=== PATIENT | female | born 2000 | race Caucasian/White ===

== ENCOUNTER 2020-01-14 19:39 | Emergency (ER) | payer OTHER ==
[~2020-01-14] VITALS: Ht 160 cm; Wt 50.9 kg
[2020-01-14] MEDS ORDERED: DOXY100C37 PO (23:33)
[2020-01-14] MEDS ORDERED: FLAG500T PO (23:33)
[2020-01-14] MEDS ORDERED: LIDOCAINE 1% SDV 5 ML VIAL DILUENT ONE (23:45)
[2020-01-14] MEDS ORDERED: cefTRIAXone SOD 1 GM VIAL (J0696) IM ONE (23:45)
[2020-01-15] VITALS: BP 122/57
[2020-01-15 00:37] LABS: CHLAMYDIA DNA AMPLIFICATION NEGATIVE (NEGATIVE); GC DNA AMPLIFICATION NEGATIVE (NEGATIVE)
== END 2020-01-15 00:25 | disposition home or self-care (01) ==
LOC: M ED 19:39
DX: Z11.3 Encounter for screening for infections with a predominantly sexual mode of transmission (principal); Z91.018 Allergy to other foods
CPT/HCPCS: 84702; 87491; 87591; 96372; 99284; J0696

== ENCOUNTER → 2020-08-31 | Outpatient (REF) | payer OTHER ==
[~2020-08-31] MED LIST: DOXY100C37 PO; FLAG500T PO
[2020-08-31 17:20] LABS: HEMATOCRIT 36.8 % (36.0-47.0); HEMOGLOBIN 12.1 g/dl (12.0-15.5); MEAN CORPUSCULAR HGB CONC 32.9 g/dl (32.0-36.5); MEAN CORPUSCULAR VOLUME 91.1 fl (80.0-96.0); PLATELET COUNT, AUTOMATED 214 10^3/uL (150-450); RED BLOOD COUNT 4.04 10^6/uL (4.00-5.40); WHITE BLOOD COUNT 7.4 10^3/uL (4.0-10.0)
[2020-08-31 18:48] LABS: HIV 1&2 SCREEN CENTAUR NEGATIVE (NEGATIVE)
[2020-09-01 12:11] LABS: HEPATITIS C VIRUS ABY INDEX 0.1 INDEX (<0.8)
== END ==
LOC: M PLALAB 13:52
PROVIDERS: ATTEND Obstetrics & Gynecology
DX: Z34.01 Encounter for supervision of normal first pregnancy, first trimester (principal)

== ENCOUNTER → 2020-11-30 | Outpatient (CLI) | payer OTHER ==
--- NOTE | 2020-11-30 13:42 | REP ---
INDICATION: ANATOMY COMPARISON: None. TECHNIQUE: Transabdominal obstetrical ultrasound with color Doppler evaluation. FINDINGS: Examination demonstrates a single live intrauterine in cephalic presentation. motion is identified by technologist. Placenta is noted posterior and grade 1 without evidence for placenta previa or abruption. Amniotic fluid volume is normal. Cervix measures 3.8 cm in length and appears closed.. Gestational age by current measurements 20 weeks 0 days with REDDY 04/19/2021. FHR equals 146 beats per minute. BPD: 4.7 cm 20 weeks 1 day HC: 17.5 cm 20 weeks 0 days AC: 14.1 cm 19 weeks 3 days FL: 3.2 cm 20 weeks 0 days HL: 3.1 cm 20 weeks 3 days HC/AC: 1.24 Estimated weight 311 grams (20thpercentile). Anatomical assessment demonstrates normal structures including cranium, choroid plexus, cavum, cerebellum/posterior fossa, facial features, lungs, diaphragm, stomach, cord insertion/three-vessel cord, kidneys/bladder, spine, and extremities. IMPRESSION: 1. Single live intrauterine in cephalic presentation demonstrating appropriate estimated weight. 2. Limited evaluation of the heart/ventricular outflow tracts due to positioning. Remainder of the anatomical assessment is complete and normal. <Electronically signed by Justin Frias > 11/30/20 [id number]
== END ==
LOC: M WHC 12:09
PROVIDERS: ATTEND Obstetrics & Gynecology
DX: Z36.3 Encounter for antenatal screening for malformations (principal); Z3A.20 20 weeks gestation of pregnancy
CPT/HCPCS: 76811; G0463

== ENCOUNTER → 2021-01-15 | Outpatient (CLI) | payer OTHER ==
--- NOTE | 2021-01-15 16:59 | REP ---
INDICATION: F/U ANATOMY. COMPARISON: 11/30/2020. TECHNIQUE: Real-time sonographic evaluation of the gravid uterus performed. FINDINGS: Estimated gestational age is26 weeks 6 days, EDC 04/17/2021. Today's measurements indicate appropriate growth. Presentation: Breech Placenta posterior, grade 1, without evidence of placenta previa. heart rate is recorded at 149 beats per minute. Amniotic fluid is subjectively normal. Closed cervical length is measured at 3.1 cm. Biometry chart: BPD: 64 mm, 25 weeks 6 days, 31st percentile. HC: 241 mm, 26 weeks 1 days, 35th percentile AC: 218 mm, 26 weeks 2 days, 38th percentile Femur length: 51 mm, 27 weeks 1 days, 55th percentile HC to AC ratio: 1.11, normal range 1.0-1.19. Estimated weight: 948g, 26th percentile. anatomy: Once again the four-chamber heart and left ventricular outflow tracts are not well seen due to position. The facial structures, right ventricular outflow tract, stomach, kidneys, bladder and spine are visualized and are grossly unremarkable. Three-vessel cord is noted. IMPRESSION: Viable single intrauterine gestation as above. Once again four-chamber heart and left ventricular outflow tract are not well seen due to position. <Electronically signed by Matt Canseco > 01/15/21 [id number]
== END ==
LOC: M WHC 14:11
PROVIDERS: ATTEND Obstetrics & Gynecology
DX: Z36.89 Encounter for other specified antenatal screening (principal); Z3A.26 26 weeks gestation of pregnancy; Z79.899 Other long term (current) drug therapy

== ENCOUNTER → 2021-01-15 | Outpatient (REF) | payer OTHER ==
[2021-01-15 15:34] LABS: HEMATOCRIT 35.2 % (36.0-47.0); HEMOGLOBIN 11.2 g/dl (12.0-15.5); MEAN CORPUSCULAR HGB CONC 31.8 g/dl (32.0-36.5); MEAN CORPUSCULAR VOLUME 97.5 fl (80.0-96.0); PLATELET COUNT, AUTOMATED 244 10^3/uL (150-450); RED BLOOD COUNT 3.61 10^6/uL (4.00-5.40); WHITE BLOOD COUNT 9.7 10^3/uL (4.0-10.0)
== END ==
LOC: M PLALAB 11:56
PROVIDERS: ATTEND Specialist
DX: Z36.89 Encounter for other specified antenatal screening (principal)

== ENCOUNTER 2021-01-29 12:46 | Outpatient (CLI) | payer OTHER ==
[~2021-01-29] VITALS: Ht 160 cm; Wt 59.4 kg
[2021-01-29] MEDS ORDERED: PRENTAB9 PO (13:30)
[2021-01-29 13:34] VITALS: BP 106/65
--- NOTE | 2021-02-03 14:48 | IPN ---
PROGRESS NOTE DATE: 01/29/2021 SUBJECTIVE: Jackelyn is a 21-year-old, 1, para 0 at 28-6/7 weeks gestation with an estimated date of confinement (EDC) of 04/17/2021 based on last menstrual period and confirmed by first trimester ultrasound. She presents to labor and delivery today with report of right hip discomfort and a left lower tooth abscess. [facility] was [facility] in the first trimester. 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. Her labs have been uncomplicated. She reports complaint of right hip discomfort with ambulation and activity that is a chronic thing; however, in the last few weeks it has gotten worse. She does have the ability to access physical therapy through the [place], which she has not taken advantage of. She also complains of a left molar toothache that has been going on for a couple days and this morning had become significantly worse. She does not have a current dentist. Has not been seen by a dentist since 2019. She denies vaginal bleeding, leakage of fluid, and painful contractions. The fetus has been active. PAST MEDICAL HISTORY: 1. Abnormal Pap smear. 2. Positive HPV. SURGERIES: None. FAMILY HISTORY: Diabetes, anxiety, heart disease, Luanne-Danlos syndrome. SOCIAL HISTORY: She is a nonsmoker. Denies alcohol and drug use. No history of sexual transmitted infections. Denies history of abuse, physical, sexual, and emotional. ALLERGIES: Season. CURRENT MEDICATIONS: vitamin. OBJECTIVE: Temperature 99, pulse 105, blood pressure (BP) is 106/65, heart rate is 135 with moderate variability, positive accelerations, negative decelerations. There is no pattern of contractions. Her sterile vaginal exam is deferred. She has mild hip discomfort with activity. Her abdomen is soft and nontender. She does have some mild swelling in the left lower jaw. It is tender to palpation. Her gums do seem swollen. ASSESSMENT: Intrauterine at 38-6/7. heart rate is category 1. No labor complaints. Likely tooth abscess. PLAN: Clindamycin 300 mg by mouth three times a day for 10 days. She is to take yogurt with each dose of clindamycin. She is to access a dentist for routine care and further evaluation of the dental complaint. She is instructed to reach out to her [facility] care provider and take immediate advantage of physical therapy related to that right hip pain. Palliative measures have been discussed with the patient. I did review signs and symptoms of labor, kick counts, and access to care as well as danger signs. She is to keep her next scheduled appointment as scheduled. All of her questions have been answered.
== END 2021-01-29 14:20 | disposition home or self-care (01) ==
LOC: M LDO 12:46
PROVIDERS: ATTEND Advanced Practice Midwife
DX: O99.611 Diseases of the digestive system complicating pregnancy, first trimester (principal); K08.89 Other specified disorders of teeth and supporting structures; O26.893 Other specified pregnancy related conditions, third trimester; M25.559 Pain in unspecified hip; O98.511 Other viral diseases complicating pregnancy, first trimester; R87.810 Cervical high risk human papillomavirus (HPV) DNA test positive; Z3A.38 38 weeks gestation of pregnancy

== ENCOUNTER → 2021-02-12 | Outpatient (CLI) | payer OTHER ==
[~2021-02-12] MED LIST changes: +PRENTAB9 PO
== END ==
LOC: M LAB 07:11
PROVIDERS: ATTEND Obstetrics & Gynecology
DX: Z34.03 Encounter for supervision of normal first pregnancy, third trimester (principal); Z3A.00 Weeks of gestation of pregnancy not specified

== ENCOUNTER → 2021-02-15 | Outpatient (CLI) | payer OTHER ==
--- NOTE | 2021-02-16 05:39 | REP ---
INDICATION: F/U ANATOMY COMPARISON: 01/15/2021 TECHNIQUE: Transabdominal obstetrical ultrasound with color Doppler evaluation. FINDINGS: Examination demonstrates a single live intrauterine in cephalic presentation. motion is identified by technologist. Placenta is noted posterior and grade 1 without evidence for placenta previa or abruption. Amniotic fluid volume is normal. Cervix measures 3.0 cm in length and appears closed.. Gestational age by LMP and 1st ultrasound 31 weeks 2 days with REDDY 04/17/2021. Gestational age by current measurements 30 weeks 5 days with REDDY 04/21/2021. FHR equals 146 beats per minute. Estimated weight 1581 grams (17thpercentile). MARLENY: 10.4 cm (8.7-23.9) Limited anatomical assessment currently demonstrates normal four-chamber heart and left cardiac ventricular outflow tract. IMPRESSION: Single live intrauterine in cephalic presentation demonstrating appropriate estimated weight. In conjunction with prior examinations, anatomical assessment is complete and normal. <Electronically signed by Justin Frias > 02/16/21 [id number]
== END ==
LOC: M WHC 15:03
PROVIDERS: ATTEND Specialist
DX: Z36.89 Encounter for other specified antenatal screening (principal); Z3A.30 30 weeks gestation of pregnancy

== ENCOUNTER 2021-03-13 06:48 | Emergency (ER) | payer OTHER ==
[~2021-03-13] VITALS: Ht 160 cm; Wt 5.9 kg
[2021-03-13 09:45] VITALS: BP 105/65
== END 2021-03-13 09:50 | disposition admitted as inpatient to this hospital (09) ==
LOC: M ED 06:48
DX: O9A.213 Injury, poisoning and certain other consequences of external causes complicating pregnancy, third trimester (principal); Z91.018 Allergy to other foods

== ENCOUNTER 2021-03-13 09:57 | Outpatient (CLI) | payer OTHER ==
[~2021-03-13] VITALS: Ht 160 cm; Wt 61.8 kg
[2021-03-13 10:14] VITALS: BP 106/59
--- NOTE | 2021-03-13 10:26 | IPNPDOC ---
Obstetrical Progress Note Date of Service Mar 13, 2021 Subjective 21 yo G1 at 35 5/7 weeks wandy presents from the ED after noticing a gas smell in her apartment. She and her both had headaches. She had a mildly elevateed carbon monoxide level in the ER. She is sent up for monitoring. Initially the baby was not moving. Now the movements have normalized. Assessment Variability: Moderate Accelerations: Positive Decelerations: None Heart Rate Tracing: Category I Tocometer Contractions: No Assessment and Plan Age: 21 : 1 Term: 0 Pre-term: 0 Abortions: 0 Livin Status: Reassuring Additional Comments 21 yo G1 at 35 5/7 weeks with reassuring testing Discharge home follow up clinic as scheduled Fire department is investigating gas issue at her apartment. JENNI SPIVEY MD Mar 13, 2021 10:26
== END 2021-03-13 10:58 | disposition home or self-care (01) ==
LOC: M LDO 09:57
PROVIDERS: ATTEND Specialist
DX: O9A.213 Injury, poisoning and certain other consequences of external causes complicating pregnancy, third trimester (principal); Z3A.35 35 weeks gestation of pregnancy; T58.91XA Toxic effect of carbon monoxide from unspecified source, accidental (unintentional), initial encounter; Y92.009 Unspecified place in unspecified non-institutional (private) residence as the place of occurrence of the external cause; Z91.018 Allergy to other foods

== ENCOUNTER → 2021-04-07 | Outpatient (CLI) | payer OTHER | LOC: M LABSMTC 11:25 | PROVIDERS: ATTEND Anesthesiology | DX: Z01.812 Encounter for preprocedural laboratory examination (principal); Z20.822 Contact with and (suspected) exposure to COVID-19 ==

== ENCOUNTER 2021-04-12 06:09 | Inpatient (IN) | payer OTHER ==
[2021-04-12] VITALS (9 sets, daily range): BP systolic 105–135; BP diastolic 58–83
[~2021-04-12] VITALS: Ht 160 cm; Wt 63.9 kg
[2021-04-12] MEDS ORDERED: LR 800 ML IV ONE (06:30)
[2021-04-12] MEDS ORDERED: LR 1,000 ML IV SCH (06:30)
[2021-04-12] MEDS ORDERED: ceFAZolin SOD 2 GM in IV 1 EA IV ONE (06:30)
[2021-04-12] MEDS ORDERED: BICITRA 30ML SOLN UDC PO ONE (06:30)
[2021-04-12 07:05] LABS: HEMOGLOBIN 11.6 g/dl (12.0-15.5); MEAN CORPUSCULAR HEMOGLOBIN 29.7 pg (27.0-33.0); MEAN CORPUSCULAR HGB CONC 32.2 g/dl (32.0-36.5); MEAN CORPUSCULAR VOLUME 92.3 fl (80.0-96.0); PLATELET COUNT, AUTOMATED 239 10^3/uL (150-450); WHITE BLOOD COUNT 7.9 10^3/uL (4.0-10.0)
[2021-04-12] MEDS ORDERED: ONDANSETRON 4MG/2ML VIAL As Ordered ONE (07:05)
[2021-04-12] MEDS ORDERED: dexameTHASONE 4 MG/ML 1ML VIAL (J1100 PER 1MG) As Ordered ONE (07:05)
[2021-04-12] MEDS ORDERED: OXYTOCIN INJ 10 UNITS/ML VIAL (J2590) As Ordered ONE (07:05)
[2021-04-12] MEDS ORDERED: diphenhydrAMINE 50MG/ML VIAL (J1200) IV PRN (07:57)
[2021-04-12] MEDS ORDERED: METOCLOPRAMIDE INJ 10MG/2ML VIAL (J2765 PER 1) IV PRN (07:57)
[2021-04-12] MEDS ORDERED: ONDANSETRON 4MG/2ML VIAL IV PRN ×3 (07:57→09:25)
[2021-04-12] MEDS ORDERED: NALOXONE INJ 0.4MG/1ML VIAL (J2310 PER 1MG) IV PRN ×2 (07:57)
[2021-04-12] MEDS ORDERED: NALBUPHINE HCL 10 MG/ML AMP (J2300) IV PRN (07:57)
[2021-04-12] MEDS ORDERED: PHENYLephrine 500MCG 5ML (100MCG/ML) SYRINGE As Ordered ONE (08:23)
[2021-04-12] MEDS ORDERED: METOCLOPRAMIDE INJ 10MG/2ML VIAL (J2765 PER 1) As Ordered ONE (08:26)
[2021-04-12] MEDS ORDERED: propofoL 200 MG/20 ML VIAL As Ordered ONE (08:32)
[2021-04-12] MEDS ORDERED: OXYTOCIN DRIP 30 UNITS in IV 1 EA IV SCH (08:45)
[2021-04-12] MEDS: LR 1,000 ML IV SCH ×2 (08:45→16:45)
[2021-04-12] MEDS ORDERED: RHOGAM 300 MCG (1500 IU) INJ (J2790) IM SCH (08:45)
[2021-04-12] MEDS ORDERED: PERCOCET 5MG/325MG TAB PO PRN (08:45)
[2021-04-12] MEDS ORDERED: MEASLES,MUMPS,RUBELLA VACCINE INJ (MMR-II) (90707) SC SCH (08:45)
[2021-04-12] MEDS ORDERED: SIMETHICONE 80MG CHEW TAB PO PRN (08:45)
--- NOTE | 2021-04-12 08:50 | ROOPDOC ---
[facility] Report Of Operation Report of Operation DATE OF PROCEDURE: 04/12/21 Report of operation Preoperative diagnosis: 39 weeks, h/o maternal pelvic fracture Postoperative diagnosis: same Procedure: Primary low transverse section. Surgeon: Jenni Spivey M.D. Asst.: Linda Carbajal CNM EBL: 500 ml. Urine output: 200 mL's. Findings: 6 lbs. 15 oz. female infant, 's 9 and 9 g normal uterus, fallopian tubes, ovaries. Operative summary: Patient taken to the operating room where spinal anesthesia was induced. She was prepped draped sterile fashion in the supine position. A Rangel catheter was placed. A Pfannenstiel skin incision was made with scalpel. Fascia was incised and extended bilaterally. The peritoneal cavity was entered. A Mobius retractor was placed. A bladder flap was created. A curvilinear incision was made in lower uterine segment until Clear fluid was noted. The incision was extended manually. The infant was delivered from the vertex positio n without difficulty. Cord was doubly clamped and cut. The was handed to awaiting nurses. The placenta was expressed. Uterus was closed with O-Vicryl in a running locked fashion. A second imbricating layer of Vicryl was placed. Peritoneum was closed with 2-0 Vicryl a running fashion. Fascia was closed with 0 Vicryl in running fashion. Skin was closed 4-0 Monocryl subcuticular sutures. Sponge, instrument and needle counts were correct. Linda Carbajal CNM, assisted with all aspects of the procedure. She helped each layer of the incision and deliver the fetus. JENNI SPIVEY MD April 12, 2021 08:50
[2021-04-12] MEDS ORDERED: ACETAMINOPHEN 1000MG 100ML IV BTL (OFIRMEV) (J0131 PER 10MG) As Ordered ONE (08:52)
[2021-04-12] MEDS ORDERED: KETOROLAC 60MG 2ML VIAL As Ordered ONE (08:52)
[2021-04-12] MEDS: PRENATAL VITAMINS CHEWABLE TABLET PO SCH (09:00)
[2021-04-12] MEDS ORDERED: MORPHINE PRES-FREE INJ 10 MG/10 ML VIAL (J2274) As Ordered ONE (09:21)
[2021-04-12] MEDS ORDERED: fentaNYL 100 MCG/2 ML INJECTION (J3010) IV PRN (09:25)
[2021-04-12] MEDS ORDERED: oxyCODONE 5MG TAB PO PRN (09:25)
[2021-04-12] MEDS ORDERED: OXYTOCIN 30 UNITS IN 0.9% NaCl 500ML IV BAG (J2590) As Ordered ONE (10:03)
[2021-04-12] MEDS: KETOROLAC 30 MG/ML 1ML VIAL IV SCH ×2 (15:18→20:43)
[2021-04-13 02:00] VITALS: BP 104/64
[2021-04-13] MEDS: KETOROLAC 30 MG/ML 1ML VIAL IV SCH (02:26)
[2021-04-13] MEDS: PERCOCET 5MG/325MG TAB PO PRN ×2 (05:43→16:42)
[2021-04-13 06:00] VITALS: BP 117/75
[2021-04-13 07:33] LABS: HEMOGLOBIN 9.7 g/dl (12.0-15.5); MEAN CORPUSCULAR HEMOGLOBIN 29.8 pg (27.0-33.0); MEAN CORPUSCULAR HGB CONC 32.3 g/dl (32.0-36.5); MEAN CORPUSCULAR VOLUME 92.3 fl (80.0-96.0); PLATELET COUNT, AUTOMATED 199 10^3/uL (150-450); RED BLOOD COUNT 3.25 10^6/uL (4.00-5.40); WHITE BLOOD COUNT 12.8 10^3/uL (4.0-10.0)
--- NOTE | 2021-04-13 08:25 | IPNPDOC ---
Progress Note Date of Service: April 13, 2021 Day#: 1 Progress Note SUBJECT: Jackelyn is a 21-year-old female who had a primary section yesterday due to a history of a fractured pelvis. She has been ambulating, voiding spontaneously without issue and tolerating regular diet. Reports minimal vaginal bleeding. Reports she has had trouble getting out of bed without help. OBJECTIVE: VITAL SIGNS: Within normal limits, afebrile. Alert and oriented times three. Sitting up in bed. Breath sounds clear to auscultation. Abdomen: Fundus firm at U. Dressing intact. Minimal lochia. ASSESSMENT: Day 1 postoperative PLAN: 1. Continue supportive nursing care and pain management. 2. Patient to ambulate and shower today. 3. May have saline lock removed. VS, I&O, 24H, [facility] Vital Signs/I&O Vital Signs Date Time Temp Pulse Resp B/P (MAP) Pulse Ox O2 Delivery O2 Flow Rate FiO2 04/13/21 06:00 98.1 65 18 117/75 (89) 100 Room Air I&O- Last 24 Hours up to 6 AM 04/13/21 06:00 Intake Total 1620 ml Output Total 2325 ml Balance -705 ml Laboratory Data 24H LABS Laboratory Tests 2 04/13/21 07:16: Nucleated Red Blood Cells % (auto) 0.0 CBC/BMP Laboratory Tests 04/13/21 07:16 ANJU SAMUEL CNM April 13, 2021 08:25
[2021-04-13] MEDS: PRENATAL VITAMINS CHEWABLE TABLET PO SCH (08:31)
[2021-04-13 09:59] VITALS: BP 114/61
[2021-04-13] MEDS: IBUPROFEN 800 MG TAB PO SCH ×2 (13:31→19:27)
[2021-04-13 14:00] VITALS: BP 120/72
[2021-04-13] MEDS ORDERED: IBUP80TA PO (14:13)
[2021-04-13] MEDS ORDERED: OXYC1TAB23 PO (14:14)
[2021-04-13 18:00] VITALS: BP 117/73
[2021-04-13 22:00] VITALS: BP 133/69
[2021-04-14] MEDS: PERCOCET 5MG/325MG TAB PO PRN (01:29)
[2021-04-14 02:00] VITALS: BP 122/78
[2021-04-14] MEDS: IBUPROFEN 800 MG TAB PO SCH (03:13)
[2021-04-14 05:48] VITALS: BP 115/69
[2021-04-14] MEDS: PRENATAL VITAMINS CHEWABLE TABLET PO SCH (08:16)
[2021-04-14] MEDS ORDERED: COLA100C5 PO (08:29)
--- NOTE | 2021-04-14 08:40 | IPNPDOC ---
Progress Note Date of Service: April 14, 2021 Day#: 2 Progress Note PPD 2 SUBJECT: Jackelyn is a 21yo [id number] s/p uncomplicated PLTCS at term for hx of maternal pelvic fracture, doing well post-op/ day # 2. She has been ambulating, voiding spontaneously without issue and tolerating regular diet. Breast feeding without issue- has some nipple trauma on the left nipple, working on improving baby's latch. Reports lochia is like a normal period. No f/c/n/v/CP/SOB. OBJECTIVE: VITAL SIGNS: Within normal limits, afebrile. Alert and oriented times three. Abdomen: Fundus firm at U-2. Soft, appropriately tender to palpation without rebound/guarding. Pfannenstiel incision covered by clean/dry optifoam dressing. Extremities: no pain with palpation of calves Labs: pre-op H/H: 11.6/36 post-op H/H: 9.7/30 ASSESSMENT: Jackelyn is a 21yo [id number] s/p uncomplicated PLTCS at term for hx of maternal pelvic fracture, doing well post-op/ day # 2. Vitals within normal limits, afebrile, hemodynamically stable with no evidence of infection. PLAN: 1. Discharge to home today. 2. Motrin and percocet for pain. Colace for bowel regimen. 3. Encourage breast feeding and ambulation. 4. Regular diet 5. Routine incision check in 2 weeks in clinic 6. Discussed return precautions at length. Remove optifoam dressing in 1 week, keep incision clean and dry 7. Vaginal rest and no heavy lifting 6 weeks Margo Lopez MD VS, I&O, 24H, [facility] Vital Signs/I&O Vital Signs Date Time Temp Pulse Resp B/P (MAP) Pulse Ox O2 Delivery O2 Flow Rate FiO2 04/14/21 05:48 98.4 90 16 115/69 (84) 98 Room Air Margo Lopez MD April 14, 2021 08:40
--- NOTE | 2021-04-14 08:51 | DS.PDOC ---
Discharge Summary General Date of Admission April 12, 2021 at 06:09 Date of Discharge April 14, 2021 Attending Physician: JENNI SPIVEY MD Discharge Summary PROCEDURES PERFORMED DURING STAY: primary low transverse section ADMITTING DIAGNOSES: 1. term gestation, maternal history of pelvic fracture DISCHARGE DIAGNOSES: 1. term gestation, maternal history of pelvic fracture COMPLICATIONS/CHIEF COMPLAINT: History Of Pelvic Fracture. HISTORY OF PRESENT ILLNESS/HOSPITAL COURSE: Jackelyn is a 21yo [id number] s/p uncomplicated PLTCS at term for hx of maternal pelvic fracture, doing well post-op/ day # 2. Vitals within normal limits, afebrile, hemodynamically stable with no evidence of infection. DISCHARGE MEDICATIONS: Please see below. ALLERGIES: Please see below. PHYSICAL EXAMINATION ON DISCHARGE: VITAL SIGNS: Within normal limits, afebrile. Alert and oriented times three. Abdomen: Fundus firm at U-2. Soft, appropriately tender to palpation without rebound/guarding. Pfannenstiel incision covered by clean/dry optifoam dressing. Extremities: no pain with palpation of calves LABORATORY DATA: Please see below. pre-op H/H: 11.6/36 post-op H/H: 9.7/30 DISCHARGE PLAN/INSTRUCTIONS: 1. Discharge to home today. 2. Motrin and percocet for pain. Colace for bowel regimen. 3. Encourage breast feeding and ambulation. 4. Regular diet 5. Routine incision check in 2 weeks in clinic 6. Discussed return precautions at length. Remove optifoam dressing in 1 week, keep incision clean and dry 7. Vaginal rest and no heavy lifting 6 weeks DISCHARGE CONDITION: Stable TIME SPENT ON DISCHARGE: Greater than 30 minutes. Margo Lopez MD Vital Signs/I&Os Vital Signs Date Time Temp Pulse Resp B/P (MAP) Pulse Ox O2 Delivery O2 Flow Rate FiO2 04/14/21 05:48 98.4 90 16 115/69 (84) 98 Room Air Discharge Medications Scheduled Docusate Sodium (Colace) 100 Mg Capsule, 1 CAP PO BID Ibuprofen (Ibuprofen) 800 Mg Tablet, 800 MG PO Q8H No.137/Iron/Folic Acd ( Vitamin Tablet) 1 Each Tablet, 1 TAB PO DAILY, (Reported) Scheduled PRN Oxycodone HCl/Acetaminophen (Oxycodone-Acetaminophen 5-325) 1 Each Tablet, 1 TAB PO TIDP PRN for pain Allergies Coded Allergies: alcohol (Verified Allergy, Unknown, 03/31/21) BEER, WINE Margo Lopez MD April 14, 2021 08:51
== END 2021-04-14 11:30 | disposition home or self-care (01) | DRG 788 ==
LOC: M LDI 06:09 → M OBS 10:19
PROVIDERS: ADMIT Specialist; ATTEND Specialist
PROC: 10D00Z1 Extraction of Products of Conception, Low, Open Approach (ICD-10-PCS; principal; 2021-04-12 07:30)
DX: O80 Encounter for full-term uncomplicated delivery (principal); Z37.0 Single live birth; Z87.81 Personal history of (healed) traumatic fracture; Z3A.39 39 weeks gestation of pregnancy

== ENCOUNTER → 2021-11-05 | Outpatient (CLI) | payer OTHER ==
[~2021-11-05] MED LIST changes: +COLA100C5 PO; +DOXY-443 PO; -DOXY100C37 PO; +IBUP80TA PO; +OXYC1TAB23 PO
== END ==
LOC: M WHC 15:07
PROVIDERS: ATTEND Specialist
DX: R10.2 Pelvic and perineal pain (principal); N85.4 Malposition of uterus